=== PATIENT | male | born 1945 | race Caucasian/White ===

== ENCOUNTER 2016-07-02 15:58 | Observation (INO) | payer BC, MEDICAID ==
--- NOTE | 2016-07-02 17:07 | Emergency Department Record ---
History of Present Illness - General Chief Complaint: Shortness of breath Stated Complaint: FLEM IN THROAT Time Seen by Provider: 07/02/16 16:58 Source: Patient, RN notes reviewed - History of Present Illness Initial Comments: cough and tight feeling in his throat, history of COPD, neck and shoulder pain and and unable to sleep last night because of neck and jaw pain - Related Data Home Medications Medication Instructions Recorded Confirmed Last Taken Albuterol Sulfate [Proair Hfa] 1 - 2 puff IH .EVERY 4-6 HOURS PRN 07/02/1607/0207/02/16 09:00 Amlodipine Besylate [Norvasc] 10 mg PO DAILY 07/02/16 07/02/16 07/02/16 09:00 Budesonide/Formoterol Fumarate 2 puff INH BID 07/02/16 07/02/16 07/02/16 09:00 [Symbicort 160-4.5 Mcg Inhaler] Cetirizine HCl 10 mg PO DAILY 07/02/16 07/02/16 07/02/16 09:00 Lisinopril 20 mg PO DAILY 07/02/16 07/02/16 07/02/16 09:00 Tiotropium [place] [Spiriva] 18 mcg IH DAILY 07/02/16 07/02/16 07/02/16 09:00 Previous Rx's Medication Instructions Recorded Azithromycin [Zithromax] 250 mg PO DAILY #6 tab 07/02/16 Allergies Allergy/AdvReac Type Severity Reaction Status Date / Time [id number] Reductase AdvReac Intermediate PT UNSURE Verified 07/02/16 16:50 Inhibitor OF REACTION Review of Systems Reviewed: No additional complaints except as noted below Constitutional: Reports: As per HPI. Denies: Chills, Fever, Malaise, Night sweats, Weakness, Weight change Eyes: Reports: As per HPI. Denies: Eye discharge, Eye pain, Photophobia, Vision change ENT: Reports: As per HPI, Congestion, Throat pain (tight feeling in his throat) . Denies: Dental pain, Ear pain, Epistaxis, Hearing loss Respiratory: Reports: As per HPI, Cough. Denies: Dyspnea, Hemoptysis, Stridor, Wheezes Cardiovascular: Reports: As per HPI. Denies: Arrhythmia, Chest pain, Dyspnea on exertion, Edema, Murmurs, Orthopnea, Palpitations, Paroxysmal nocturnal dyspnea, Rheumatic Fever, Syncope Endocrine: Reports: As per HPI. Denies: Fatigue, Heat or cold intolerance, Polydipsia, Polyuria Gastrointestinal: Reports: As per HPI. Denies: Abdominal pain, Constipation, Diarrhea, Hematemesis, Hematochezia, Melena, Nausea, Vomiting Genitourinary: Reports: As per HPI. Denies: Dysuria, Frequency, Hematuria, Incontinence, Retention, Testicular pain, Testicular mass, Urgency Musculoskeletal: Reports: As per HPI. Denies: Arthralgia, Back pain, Gout, Joint swelling, Myalgia, Neck pain Skin: Reports: As per HPI. Denies: Bruising, Change in color, Change in hair/ nails, Lesions, Pruritus, Rash Neurological: Reports: As per HPI. Denies: Abnormal gait, Confusion, Headache, Numbness, Paresthesias, Seizure, Tingling, Tremors, Vertigo, Weakness Psychiatric: Reports: As per HPI. Denies: Anxiety, Auditory hallucinations, Depression, Homicidal thoughts, Suicidal thoughts, Visual hallucinations Hematological/Lymphatic: Reports: As per HPI. Denies: Anemia, Blood Clots, Easy bleeding, Easy bruising, Swollen glands Physical Exam - General General Appearance: Alert, Oriented x3, Cooperative, No acute distress - Head Head exam: Normal inspection - Eye Eye exam: Normal appearance, PERRL Pupils: Normal accommodation - ENT ENT exam: Normal exam, Mucous membranes moist, Normal external ear exam, Normal orophraynx, TM's normal bilaterally Ear exam: Normal external inspection. negative: External canal tenderness Nasal Exam: Normal inspection. negative: Discharge, Sinus tenderness Mouth exam: Normal external inspection, Tongue normal Teeth exam: Normal inspection. negative: Dental caries Throat exam: Normal inspection. negative: Tonsillar erythema, Tonsillar exudate - Neck Neck exam: Normal inspection, Full ROM. negative: Tenderness - Respiratory Respiratory exam: Normal lung sounds bilaterally. negative: Respiratory distress - Cardiovascular Cardiovascular Exam: Regular rate, Normal rhythm, Normal heart sounds - GI/Abdominal GI/Abdominal exam: Soft, Normal bowel sounds. negative: Tenderness - Rectal Rectal exam: Deferred - exam: Deferred - Extremities Extremities exam: Normal inspection, Full ROM, Normal capillary refill. negative: Tenderness - Back Back exam: Reports: Normal inspection, Full ROM. Denies: Muscle spasm, Rash noted, Tenderness - Neurological Neurological exam: Alert, Normal gait, Oriented X3, Reflexes normal - Psychiatric Psychiatric exam: Normal affect, Normal mood - Skin Skin exam: Dry, Intact, Normal color, Warm Course Vital Signs 07/02/16 16:48 Temperature 97.9 F Pulse Rate [ 92 H Pulse Ox Probe] Respiratory 16 Rate Blood Pressure 166/90 [Left Arm] Pulse Ox 99 - Reevaluation(s) Reevaluation #1: doing better 07/02/16 18:01 Reevaluation #2: Patient able to swallow liquids and he ate food today 07/02/16 18:26 Reevaluation #3: feeling better after the breathing treatment 07/02/16 18:36 Medical Decision Making - Data Complexity MDM Data: Labs Ordered and/or Reviewed (soft tissue neck neg per radiology, chest no acute changes), X-Ray Ordered and/or Reviewed (chest chronic changes, soft tissue neck epiglottis enlarged) - Lab Data Result diagrams: 07/02/16 18:35 07/02/16 18:35 Disposition Clinical Impression: Bronchitis, COPD (chronic obstructive pulmonary disease) with acute bronchitis Disposition: Home, Self-Care Condition: (1) Good Instructions: Acute Bronchitis (ED), Chronic Obstructive Pulmonary Disease (ED) Additional Instructions: follow up with family in 3 days Prescriptions: Azithromycin [Zithromax] 250 mg PO DAILY #6 tab Forms: Patient Portal Access Time of Disposition: 18:51
[2016-07-02] MEDS ORDERED: IPRATROPIUM/ALBUTEROL (0.5MG/3MG) NEB INH ONE (17:23)
[2016-07-02] MEDS ORDERED: AZITHROMYCIN 500 MG TABLET PO ONE (18:38)
[2016-07-02 18:50] LABS: BASO % 0.4 % (0-6); EOS % 2.7 % (0-6); GRAN % 58.8 % (47-80); HEMATOCRIT 42.4 % (42.0-52.0); HEMOGLOBIN 14.6 gm/dl (14.0-18.0); LYMPH % 25.7 % (16-45); MEAN CORPUSCULAR HEMOGLOBIN 32.4 pg (27-33); MEAN CORPUSCULAR HGB CONC 34.4 g/dl (32-36); MEAN PLATELET VOLUME 8.6 fl (7.4-10.4); MONO % 12.4 % (0-9); PLATELET COUNT 247 K/uL (130-400); RED BLOOD COUNT 4.51 M/uL (4.40-5.70); RED CELL DISTRIBUTION WIDTH 12.7 % (11.5-14.5); WHITE BLOOD COUNT W/O DIFF 7.4 K/uL (4.2-12.2)
[2016-07-02 19:00] LABS: ANION GAP 7.8 (7-16); BLOOD UREA NITROGEN 10 mg/dL (9-20); CARBON DIOXIDE 25.2 mmol/L (22-30); CREATININE 0.7 mg/dL (0.66-1.25); EST GLOMERULAR FILTRATION RATE > 60 ml/min; GLUCOSE,RANDOM 109 mg/dL (70-110)
[2016-07-02 19:17] LABS: TROPONIN I < 0.012 ng/mL (0.00-0.034)
[2016-07-02 19:21] LABS: CKMB 4.6 ng/mL (0-4.3)
[2016-07-02] MEDS ORDERED: ASPIRIN 81 MG CHEWABLE TABLET PO ONE (19:37)
[2016-07-02 19:43] LABS: CREATINE PHOSPHOKINASE 150 U/L (55-170)
--- NOTE | 2016-07-02 19:45 | Emergency Department Record ---
History of Present Illness - General Chief Complaint: Shortness of breath Stated Complaint: FLEM IN THROAT Time Seen by Provider: 07/02/16 16:58 Source: Patient, RN notes reviewed - History of Present Illness Onset/Timin -: Days(s) - Related Data Home Medications Medication Instructions Recorded Confirmed Last Taken Albuterol Sulfate [Proair Hfa] 1 - 2 puff IH .EVERY 4-6 HOURS PRN 07/02/1607/0207/02/16 09:00 Amlodipine Besylate [Norvasc] 10 mg PO DAILY 07/02/16 07/02/16 07/02/16 09:00 Budesonide/Formoterol Fumarate 2 puff INH BID 07/02/16 07/02/16 07/02/16 09:00 [Symbicort 160-4.5 Mcg Inhaler] Cetirizine HCl 10 mg PO DAILY 07/02/16 07/02/16 07/02/16 09:00 Lisinopril 20 mg PO DAILY 07/02/16 07/02/16 07/02/16 09:00 Tiotropium [place] [Spiriva] 18 mcg IH DAILY 07/02/16 07/02/16 07/02/16 09:00 Previous Rx's Medication Instructions Recorded Azithromycin [Zithromax] 250 mg PO DAILY #6 tab 07/02/16 Allergies Allergy/AdvReac Type Severity Reaction Status Date / Time [id number] Reductase AdvReac Intermediate PT UNSURE Verified 07/02/16 16:50 Inhibitor OF REACTION Travel Screening - Travel/Exposure Within Last 30 Days Have you traveled within the last 30 days?: No - Travel/Exposure Within Last Year Have you traveled outside the [place] in the last year?: No - Additonal Travel Details Have you been exposed to anyone with a communicable illness?: No - Travel Symptoms Symptom Screening: None Review of Systems Constitutional: Reports: As per HPI. Denies: Chills, Fever, Malaise, Night sweats, Weakness, Weight change Eyes: Reports: As per HPI. Denies: Eye discharge, Eye pain, Photophobia, Vision change ENT: Reports: As per HPI, Congestion, Throat pain (tight feeling in his throat) . Denies: Dental pain, Ear pain, Epistaxis, Hearing loss Respiratory: Reports: As per HPI, Cough. Denies: Dyspnea, Hemoptysis, Stridor, Wheezes Cardiovascular: Reports: As per HPI. Denies: Arrhythmia, Chest pain, Dyspnea on exertion, Edema, Murmurs, Orthopnea, Palpitations, Paroxysmal nocturnal dyspnea, Rheumatic Fever, Syncope Endocrine: Reports: As per HPI. Denies: Fatigue, Heat or cold intolerance, Polydipsia, Polyuria Gastrointestinal: Reports: As per HPI. Denies: Abdominal pain, Constipation, Diarrhea, Hematemesis, Hematochezia, Melena, Nausea, Vomiting Genitourinary: Reports: As per HPI. Denies: Dysuria, Frequency, Hematuria, Incontinence, Retention, Testicular pain, Testicular mass, Urgency Musculoskeletal: Reports: As per HPI. Denies: Arthralgia, Back pain, Gout, Joint swelling, Myalgia, Neck pain Skin: Reports: As per HPI. Denies: Bruising, Change in color, Change in hair/ nails, Lesions, Pruritus, Rash Neurological: Reports: As per HPI. Denies: Abnormal gait, Confusion, Headache, Numbness, Paresthesias, Seizure, Tingling, Tremors, Vertigo, Weakness Psychiatric: Reports: As per HPI. Denies: Anxiety, Auditory hallucinations, Depression, Homicidal thoughts, Suicidal thoughts, Visual hallucinations Hematological/Lymphatic: Reports: As per HPI. Denies: Anemia, Blood Clots, Easy bleeding, Easy bruising, Swollen glands Past Medical History - SOCIAL HISTORY Smoking Status: Former smoker Alcohol Use: Heavy Alcohol Use Comment: 4 or 5 beers per day Drug Use: None - RESPIRATORY Hx Respiratory Disorders: Yes Hx Asthma: Yes Hx COPD: Yes - CARDIOVASCULAR Hx Cardio Disorders: No - NEURO Hx Neuro Disorders: No - GI Hx GI Disorders: No - Hx Genitourinary Disorders: No - ENDOCRINE Hx Endocrine Disorders: No - MUSCULOSKELETAL Hx Musculoskeletal Disorders: Yes Comment:: left arm doesnt straighten out, right leg injury - PSYCH Hx Psych Problems: No - HEMATOLOGY/ONCOLOGY Hx Hematology/Oncology Disorders: No Family Medical History Any Significant Family History?: No Course Vital Signs 07/02/16 07/02/16 07/02/16 16:48 17:52 18:55 Temperature 97.9 F Pulse Rate 86 Pulse Rate [ 92 H 93 H Pulse Ox Probe] Respiratory 16 16 18 Rate Blood Pressure 166/90 144/101 [Left Arm] Pulse Ox 99 96 98 - Reevaluation(s) Reevaluation #1: 07/02/16 19:53 Ckmb came back slightly high and his troponin I was neg. Concerned about nonSTelevated ND so will abmit for serial cardiac enzymes and a repeat EKG. Talked to Agnieszka and will admit to Dr. Abarca. Medical Decision Making - Lab Data Result diagrams: 07/02/16 18:35 07/02/16 18:35 Lab Results 07/02/16 07/02/16 07/02/16 Range/Units 18:35 18:35 18:35 WBC 7.4 (4.2-12.2) K/uL RBC 4.51 (4.40-5.70) M/uL Hgb 14.6 (14.0-18.0) gm/dl Hct 42.4 (42.0-52.0) % MCV 94.0 (81-97) fl MCH 32.4 (27-33) pg MCHC 34.4 (32-36) g/dl RDW 12.7 (11.5-14.5) % Plt Count 247 (130-400) K/uL MPV 8.6 (7.4-10.4) fl Gran % 58.8 (47-80) % Lymphocytes % 25.7 (16-45) % Monocytes % 12.4 H (0-9) % Eosinophils % 2.7 (0-6) % Basophils % 0.4 (0-6) % APTT 26.60 (24.5-39.1) SECONDS Sodium 126 L (136-145) mmol/L Potassium 3.9 (3.5-5.1) mmol/L Chloride 93 L (98-107) mmol/L Carbon Dioxide 25.2 (22-30) mmol/L Anion Gap 7.8 (7-16) BUN 10 (9-20) mg/dL Creatinine 0.7 (0.66-1.25) mg/dL Estimated GFR > 60 ml/min Random Glucose 109 (70-110) mg/dL Calcium 9.6 (8.5-10.1) mg/dL CK-MB (CK-2) 4.6 H (0-4.3) ng/mL Troponin I < 0.012 (0.00-0.034) ng/mL Disposition Clinical Impression: Bronchitis, Chest pain Decision to Admit: Admit from ER Condition: (1) Good Instructions: Acute Bronchitis (ED), Chronic Obstructive Pulmonary Disease (ED) Additional Instructions: follow up with family in 3 days Prescriptions: Azithromycin [Zithromax] 250 mg PO DAILY #6 tab Forms: Patient Portal Access Time of Disposition: 20:01
[2016-07-02] MEDS ORDERED: ACETAMINOPHEN 500 MG TABLET PO PRN (20:02)
[2016-07-02] MEDS ORDERED: AL HYDROX/MAG HYDROX 30ML UD PO PRN (20:02)
[2016-07-02] MEDS ORDERED: NITROGLYCERIN 0.4MG SL TABLET #25 BTL SL PRN (20:02)
[2016-07-02] MEDS ORDERED: ALBUTEROL HFA 8 GM INHALER INH PRN ×2 (20:11→23:07)
[2016-07-02] MEDS ORDERED: FLUTICASONE/SALMETEROL 250/50 DISKUS INH SCH (23:15)
[2016-07-03] MEDS ORDERED: [UNRECOGNIZED DRUG - OTHER] SL PRN ×2 (01:49→02:39)
[2016-07-03 06:58] LABS: CKMB 4.6 ng/mL (0-4.3)
--- NOTE | 2016-07-03 07:54 | History & Physical ---
History of Present Illness - Date of Service Date of Service for History & Physical: 07/03/16 - History of Present Illness Admitting Diagnosis: chest pain. acute bronchitis. copd History of Present Illness: 71 yo male admitted for CP rule out. PMHx of former smoker (quit in 2001), COPD , HTN, alcohol abuse (4, 12 ounce beers nightly), proteinuria, and hyponatremia. patient presented to our ED for increased phlegm in his throat and swollen glands. Onset 2-3 days prior to presentation. Aggravated by nothing, alleviated by breathing treatment in the ER. per patient, associated symptoms included tightness in his throat. upon presentation, patient aferile. VSS, slightly tachycardic at 92. normal WBC. sodium 126, chloride 93, CK-MB 4.6 (cut off 4.3), negative troponin. EKG : NSR, no acute changes. CXR: NAP, COPD. soft tissue xray: NAP. Patient given ASA, duo neb treatment and dose of PO Azithromycin. Placed on Tele and admitted for further cardiac work up. 07/03/16: patient sitting up in bed comfortably. He states, " i'm not staying past 1pm." He is feeling much better. states the phlegm in his throat has resolved. He denies CP, SOB, fever, chills, n/v, abdominal pain, change in bowel habits, dizziness, diaphoresis, confusion or weakness. Patient denies CP , jaw or neck pain. Denies h/o CT, CVA, or DVT/PE. States he follows with a monument installer q 3 months re proteinuria. Per patient, he's been told to follow a low sodium diet, however his sodium became too low. Sodium remains 126 this morning. PCP: Vinayak Hough M.D. Travel Screening - Travel/Exposure Within Last 30 Days Have you traveled within the last 30 days?: No - Travel/Exposure Within Last Year Have you traveled outside the [place] in the last year?: No - Additonal Travel Details Have you been exposed to anyone with a communicable illness?: No - Travel Symptoms Symptom Screening: None Review of Systems Constitutional: Reports: As per HPI. Denies: Chills, Fever, Malaise, Night sweats, Weakness, Weight change Eyes: Reports: As per HPI. Denies: Eye discharge, Eye pain, Photophobia, Vision change ENT: Reports: As per HPI, Congestion. Denies: Dental pain, Ear pain, Epistaxis , Hearing loss, Throat pain Respiratory: Reports: As per HPI, Cough. Denies: Dyspnea, Hemoptysis, Stridor, Wheezes Cardiovascular: Reports: As per HPI. Denies: Arrhythmia, Chest pain, Dyspnea on exertion, Edema, Murmurs, Orthopnea, Palpitations, Paroxysmal nocturnal dyspnea, Rheumatic Fever, Syncope Endocrine: Reports: As per HPI. Denies: Fatigue, Heat or cold intolerance, Polydipsia, Polyuria Gastrointestinal: Reports: As per HPI. Denies: Abdominal pain, Constipation, Diarrhea, Hematemesis, Hematochezia, Melena, Nausea, Vomiting Genitourinary: Reports: As per HPI. Denies: Dysuria, Frequency, Hematuria, Incontinence, Retention, Testicular pain, Testicular mass, Urgency Musculoskeletal: Reports: As per HPI. Denies: Arthralgia, Back pain, Gout, Joint swelling, Myalgia, Neck pain Skin: Reports: As per HPI. Denies: Bruising, Change in color, Change in hair/ nails, Lesions, Pruritus, Rash Neurological: Reports: As per HPI. Denies: Abnormal gait, Confusion, Headache, Numbness, Paresthesias, Seizure, Tingling, Tremors, Vertigo, Weakness Psychiatric: Reports: As per HPI. Denies: Anxiety, Auditory hallucinations, Depression, Homicidal thoughts, Suicidal thoughts, Visual hallucinations Hematological/Lymphatic: Reports: As per HPI. Denies: Anemia, Blood Clots, Easy bleeding, Easy bruising, Swollen glands Past Medical History - SOCIAL HISTORY Smoking Status: Former smoker Alcohol Use: Heavy Alcohol Use Comment: 4/5 daily Drug Use: None - RESPIRATORY Hx Respiratory Disorders: Yes Hx Asthma: Yes Hx COPD: Yes - CARDIOVASCULAR Hx Cardio Disorders: No Hx Hypertension: Yes - NEURO Hx Neuro Disorders: No - GI Hx GI Disorders: No - Hx Genitourinary Disorders: No - ENDOCRINE Hx Endocrine Disorders: No - MUSCULOSKELETAL Hx Musculoskeletal Disorders: Yes Comment:: left arm doesnt straighten out, right leg injury - PSYCH Hx Psych Problems: No - HEMATOLOGY/ONCOLOGY Hx Hematology/Oncology Disorders: No Family Medical History Any Significant Family History?: Yes Hx Resp Disorders: Father *Resp Comment: COPD H&P Meds/Allergies - Allergies Allergies: Allergies Allergy/AdvReac Type Severity Reaction Status Date / Time Bjumbro-Ans-Qae Reductase AdvReac Intermediate PT UNSURE Verified 07/02/16 16:50 Inhibitor OF REACTION - Home Medications Home Medications Medication Instructions Recorded Confirmed Last Taken Albuterol Sulfate [Proair Hfa] 1 - 2 puff IH .EVERY 4-6 HOURS PRN 07/02/1607/0207/02/16 09:00 Amlodipine Besylate [Norvasc] 10 mg PO DAILY 07/02/16 07/02/16 07/02/16 09:00 Budesonide/Formoterol Fumarate 2 puff INH BID 07/02/16 07/02/16 07/02/16 09:00 [Symbicort 160-4.5 Mcg Inhaler] Cetirizine HCl 10 mg PO DAILY 07/02/16 07/02/16 07/02/16 09:00 Lisinopril 20 mg PO DAILY 07/02/16 07/02/16 07/02/16 09:00 Tiotropium [place] [Spiriva] 18 mcg IH DAILY 07/02/16 07/02/16 07/02/16 09:00 Previous Rx's Medication Instructions Recorded Azithromycin [Zithromax] 250 mg PO DAILY #6 tab 07/02/16 - Active Medications Active Medications: Current Medications Acetaminophen (Tylenol 500mg Tab) 500 mg PO Q6H PRN PRN Reason: PAIN/TEMP Al Hydroxide/Mg Hydroxide (Maalox) 30 ml PO Q4H PRN PRN Reason: GI UPSET Albuterol Sulfate (Ventolin Hfa) 1 puff INH Q4H PRN PRN Reason: DIFFICULTY IN BREATHING Albuterol Sulfate (Ventolin Hfa) 2 puff INH Q4H PRN PRN Reason: DIFFICULTY IN BREATHING Amlodipine Besylate (Norvasc) 10 mg PO DAILY [facility] Aspirin (Ecotrin (Ec)) 81 mg PO DAILY [facility] Azithromycin (Zithromax) 500 mg PO Q24H [facility] Enoxaparin Sodium (Lovenox) 40 mg SQ DAILY [facility] Lisinopril (Zestril) 20 mg PO DAILY [facility] Loratadine (Claritin) 10 mg PO DAILY [facility] Nitroglycerin (Nitrostat 0.4mg) 0.4 mg SL Q5MIN PRN PRN Reason: CHEST PAIN [facility] 2 each SL Q4HR PRN PRN Reason: Leg cramps Patient Own Med: [facility] Leg Cramp Medication 3 each SL Q4HR PRN PRN Reason: Leg cramps Fluticasone/Salmeterol (Advair 250/50) 1 puff INH Q12H [facility] Last Admin: 07/03/16 00:20 Dose: Not Given Tiotropium [place] (Spiriva) 1 cap INH DAILY [facility] Physical Exam - Vital Signs Vital Signs: Vital Signs - Last 24 Hrs Temp Pulse Resp BP Pulse Ox 07/03/16 06:00 97.5 F L 85 16 105/71 100 07/03/16 02:02 97.7 F 83 16 119/72 100 07/02/16 20:36 97.8 F 92 H 17 145/90 98 - General General Appearance: Alert, Oriented x3, Cooperative, No acute distress - Head Head exam: Normal inspection - Eye Eye exam: Normal appearance, PERRL Pupils: Normal accommodation - ENT ENT exam: Normal exam, Mucous membranes moist, Normal external ear exam, Normal orophraynx, TM's normal bilaterally Ear exam: Normal external inspection. negative: External canal tenderness Nasal Exam: Normal inspection. negative: Discharge, Sinus tenderness Mouth exam: Normal external inspection, Tongue normal Teeth exam: Normal inspection. negative: Dental caries Throat exam: Normal inspection. negative: Tonsillar erythema, Tonsillar exudate - Neck Neck exam: Normal inspection, Full ROM. negative: Tenderness - Respiratory Respiratory exam: Normal lung sounds bilaterally. negative: Respiratory distress - Cardiovascular Cardiovascular Exam: Regular rate, Normal rhythm, Normal heart sounds - GI/Abdominal GI/Abdominal exam: Soft, Normal bowel sounds. negative: Tenderness - Rectal Rectal exam: Deferred - exam: Deferred - Extremities Extremities exam: Normal inspection, Full ROM, Normal capillary refill. negative: Tenderness - Back Back exam: Reports: Normal inspection, Full ROM. Denies: Muscle spasm, Rash noted, Tenderness - Neurological Neurological exam: Alert, Normal gait, Oriented X3, Reflexes normal - Psychiatric Psychiatric exam: Normal affect, Normal mood - Skin Skin exam: Dry, Intact, Normal color, Warm Results - Labs Result Diagrams: 07/02/16 18:35 07/03/16 05:35 Labs Last 24 Hours: Laboratory Results - last 24 hr 07/03/16 07/03/16 05:55 05:55 CK-MB (CK-2) 4.6 H Troponin I < 0.012 VTE H&P Assessment - Risk for VTE Risk for VTE: Yes Risk Level: Low (age) Risk Assessment Date: 07/03/16 Risk Assessment Time: 10:00 VTE Orders Placed or Will Be Placed: No VTE Reason for No Prophylaxis: Not Indicated (patient ambulating the room, no other risk factors aside from age) Plan - Detailed Diagnosis and Plan (1) Bronchitis Current Visit: Yes Status: Acute Base Code: J40 - BRONCHITIS, NOT SPECIFIED ACUTE OR CHRONIC Comment: 07/03/16: 71 yo male with h/o COPD presented to the ED with increased amounts of phlegm and throat tightness. normal WBC. CXR : COPD, NAP. Soft tissue x ray: NAP. O2 98% on RA. EKG: NSR, no acute changes x 2. troponin negative x 3. Symptoms improved following duo neb treatment and PO Azithromycin. Lungs CTAB on exam. - Continue home pulmonary medications- albuterol, Spiriva and Symbicort - continue PO Azithromycin - duo neb treatment Q4 prn - Will avoid systemic steroids as pulmonary exam is unremarkable and pulse ox stable. (2) COPD (chronic obstructive pulmonary disease) Current Visit: Yes Status: Acute Base Code: J44.9 - CHRONIC OBSTRUCTIVE PULMONARY DISEASE, UNSPECIFIED Comment: 07/03/16: continue home medications: albuterol, spiriva, symbicort (3) Hyponatremia Current Visit: Yes Status: Acute Base Code: E87.1 - HYPO-OSMOLALITY AND HYPONATREMIA Comment: 07/03/16: patient states this has been chronic since following a low sodium diet and increasing fluid intake. Educated patient on proper sodium intake. - increase sodium intake and decrease water consumption. - pt denies dizziness, confusion, weakness (4) DVT prophylaxis Current Visit: Yes Status: Acute Base Code: [id number] - (5) Full code status Current Visit: Yes Status: Acute Base Code: Z78.9 - OTHER SPECIFIED HEALTH STATUS
[2016-07-03 07:59] LABS: ANION GAP 9.7 (7-16); BLOOD UREA NITROGEN 10 mg/dL (9-20); CARBON DIOXIDE 20.3 mmol/L (22-30); CREATININE 0.7 mg/dL (0.66-1.25); EST GLOMERULAR FILTRATION RATE > 60 ml/min; GLUCOSE,RANDOM 108 mg/dL (70-110)
[2016-07-03] MEDS: PATIENT OWN MED: IH SCH ×2 (08:00→10:54)
[2016-07-03] MEDS ORDERED: PATIENT OWN MED: INH PRN (09:58)
[2016-07-03] MEDS ORDERED: ENOXAPARIN 40 MG/0.4 ML SYR SQ SCH (10:00)
[2016-07-03] MEDS ORDERED: TIOTROPIUM BROMIDE 5 CAPSULES INH SCH (10:00)
[2016-07-03] MEDS ORDERED: ASPIRIN 81 MG TABEC PO SCH (10:00)
[2016-07-03] MEDS ORDERED: LISINOPRIL 20 MG TABLET PO SCH (10:00)
[2016-07-03] MEDS ORDERED: AMLODIPINE BESYLATE 5MG TAB PO SCH (10:00)
[2016-07-03] MEDS ORDERED: PATIENT OWN MED: IH SCH (10:00)
[2016-07-03] MEDS ORDERED: LORATADINE 10 MG TABLET PO SCH (10:00)
[2016-07-03] MEDS ORDERED: PATIENT OWN MED: MC SCH ×2 (10:30)
--- NOTE | 2016-07-03 10:49 | Discharge Summary ---
Providers Discharge Summary Date: 07/03/16 Date of admission: 07/02/16 20:25 Expected Date of Discharge: 07/03/16 Attending physician: KRYSTA HARRY Primary care physician: VINAYAK AHN M.D. Physical Exam - Vital Signs Vital Signs: Vital Signs - Last 24 Hrs Temp Pulse Resp BP Pulse Ox 07/03/16 09:31 97.5 F L 87 18 118/70 98 07/03/16 06:00 97.5 F L 85 16 105/71 100 07/03/16 02:02 97.7 F 83 16 119/72 100 07/02/16 20:36 97.8 F 92 H 17 145/90 98 - General General Appearance: Alert, Oriented x3, Cooperative, No acute distress - Head Head exam: Normal inspection - Eye Eye exam: Normal appearance, PERRL Pupils: Normal accommodation - ENT ENT exam: Normal exam, Mucous membranes moist, Normal external ear exam, Normal orophraynx, TM's normal bilaterally Ear exam: Normal external inspection. negative: External canal tenderness Nasal Exam: Normal inspection. negative: Discharge, Sinus tenderness Mouth exam: Normal external inspection, Tongue normal Teeth exam: Normal inspection. negative: Dental caries Throat exam: Normal inspection. negative: Tonsillar erythema, Tonsillar exudate - Neck Neck exam: Normal inspection, Full ROM. negative: Tenderness - Respiratory Respiratory exam: Normal lung sounds bilaterally. negative: Respiratory distress - Cardiovascular Cardiovascular Exam: Regular rate, Normal rhythm, Normal heart sounds - GI/Abdominal GI/Abdominal exam: Soft, Normal bowel sounds. negative: Tenderness - Rectal Rectal exam: Deferred - exam: Deferred - Extremities Extremities exam: Normal inspection, Full ROM, Normal capillary refill. negative: Tenderness - Back Back exam: Reports: Normal inspection, Full ROM. Denies: Muscle spasm, Rash noted, Tenderness - Neurological Neurological exam: Alert, Normal gait, Oriented X3, Reflexes normal - Psychiatric Psychiatric exam: Normal affect, Normal mood - Skin Skin exam: Dry, Intact, Normal color, Warm Hospitalization - Hospitalization Admission Diagnosis: chest pain. acute bronchitis. copd - Problem List/Discharge Diagnosis (1) Bronchitis Status: Acute Base Code: J40 - BRONCHITIS, NOT SPECIFIED ACUTE OR CHRONIC Comment: 07/03/16: 71 yo male with h/o COPD presented to the ED with increased amounts of phlegm and throat tightness. normal WBC. CXR: COPD, NAP. Soft tissue x ray: NAP. O2 98% on RA. EKG: NSR, no acute changes x 2. troponin negative x 3. Symptoms improved following duo neb treatment and PO Azithromycin. Lungs CTAB on exam. - Continue home pulmonary medications- albuterol, Spiriva and Symbicort - continue PO Azithromycin - Will avoid systemic steroids as pulmonary exam is unremarkable and pulse ox stable. - pt will contact primary provider tomorrow to schedule a hospital follow up visit. - he agrees to return sooner re any new or worsening symptoms (2) COPD (chronic obstructive pulmonary disease) Status: Acute Base Code: J44.9 - CHRONIC OBSTRUCTIVE PULMONARY DISEASE, UNSPECIFIED Comment: 07/03/16: continue home medications: albuterol, spiriva, symbicort (3) Hyponatremia Status: Acute Base Code: E87.1 - HYPO-OSMOLALITY AND HYPONATREMIA Comment: : chronic per patient. denies dizziness, lightheadedness, weakness, or confusion. A&Ox3. provided education on hyponatremia. patient agree's to follow up with his primary provider in the next 2-3 days to f/up from hospital stay and return sooner re any new or worsening symptoms. he will get sodium rechecked prior to his follow up visit. (4) Full code status Status: Acute Base Code: Z78.9 - OTHER SPECIFIED HEALTH STATUS Comment: 07/03 - pt remained full code during hospital stay - Hospitalization Course Disposition: Home, Self-Care Hospital Course: 71 yo male admitted for CP rule out. PMHx of former smoker (quit in 2001), COPD , HTN, alcohol abuse (4, 12 ounce beers nightly), proteinuria, and hyponatremia. patient presented to our ED for increased phlegm in his throat and swollen glands. Onset 2-3 days prior to presentation. Aggravated by nothing, alleviated by breathing treatment in the ER. per patient, associated symptoms included tightness in his throat. upon presentation, patient aferile. VSS, slightly tachycardic at 92. normal WBC. sodium 126, chloride 93, CK-MB 4.6 (cut off 4.3), negative troponin. EKG : NSR, no acute changes. CXR: NAP, COPD. soft tissue xray: NAP. Patient given ASA, duo neb treatment and dose of PO Azithromycin. Placed on Tele and admitted for further cardiac work up. 07/03/16: patient sitting up in bed comfortably. He states, " i'm not staying past 1pm." He is feeling much better. states the phlegm in his throat has resolved. He denies CP, SOB, fever, chills, n/v, abdominal pain, change in bowel habits, dizziness, diaphoresis, confusion or weakness. Patient denies CP , jaw or neck pain. Denies h/o OK, CVA, or DVT/PE. 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 Per patient, he's been told to follow a low sodium diet, however his sodium became too low. Sodium remains 126 this morning. PCP: Vinayak Hough M.D. Abnormal Labs: Abnormal Lab Results 07/03/16 07/03/16 Range/Units 05:35 05:55 Sodium 126 L (136-145) mmol/L Chloride 96 L (98-107) mmol/L Carbon Dioxide 20.3 L (22-30) mmol/L CK-MB (CK-2) 4.6 H (0-4.3) ng/mL Condition at Discharge: (1) Good Discharge Medications - Discharge Medications Prescriptions: Azithromycin [Zithromax] 250 mg PO DAILY #6 tab Home Medications: Ambulatory Orders Albuterol Sulfate [Proair Hfa] 1 - 2 puff IH .EVERY 4-6 HOURS PRN 07/02/16 [ Last Taken 07/02/16 09:00] Amlodipine Besylate [Norvasc] 10 mg PO DAILY 07/02/16 [Last Taken 07/02/16 09:00 ] Azithromycin [Zithromax] 250 mg PO DAILY #6 tab 07/02/16 [Last Taken Unknown] Budesonide/Formoterol Fumarate [Symbicort 160-4.5 Mcg Inhaler] 2 puff INH BID [Last Taken 07/02/16 09:00] Cetirizine HCl 10 mg PO DAILY 07/02/16 [Last Taken 07/02/16 09:00] Lisinopril 20 mg PO DAILY 07/02/16 [Last Taken 07/02/16 09:00] Tiotropium [place] [Spiriva] 18 mcg IH DAILY 07/02/16 [Last Taken 07/02/16 09:00 ] Discharge Plan - Discharge Instructions Activity at Discharge: Increase Activity as Tolerated Diet at Discharge: Regular Diet Instructions: Azithromycin (By mouth), Hyponatremia (GEN), Acute Bronchitis (ED ), Chronic Obstructive Pulmonary Disease (ED) Additional Instructions: 2 Activity: Increase Activity as Tolerated 2 Diet: Regular Diet 2 Consults: [] 2 Follow Up: follow up with family in 3 days 2 Dressing/Wound Care: (Type) (Change) 2 Additional: [] 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
[2016-07-03] MEDS ORDERED: AZITHROMYCIN 500 MG TABLET PO SCH (18:00)
--- NOTE | 2016-07-04 07:53 | RADIOLOGY REPORT ---
EXAM: CHEST, TWO VIEWS HISTORY: COUGH AND DIFFICULTY SWALLOWING. TECHNIQUE: PA and lateral upright views of the chest were obtained. Comparison: 08/23/12. FINDINGS: The heart is normal in size. There is mild calcification of the aorta. Calcified mediastinal and hilar lymph nodes are present. The mediastinum and pulmonary vasculature are otherwise normal. There are numerous scattered calcified granulomas throughout both lungs which appear unchanged from the prior study. There are no acute infiltrates or effusions. The lungs are mildly hyperinflated consistent with underlying COPD. Degenerative changes are present within the shoulders and spine. There are no acute osseous abnormalities. IMPRESSION: 1. STABLE CHEST WITH NO ACUTE PROCESS IDENTIFIED. 2. OLD GRANULOMATOUS DISEASE. 3. MILD HYPERINFLATION. [facility]BER: [id number] [facility]
--- NOTE | 2016-07-04 07:56 | RADIOLOGY REPORT ---
EXAM: SOFT TISSUE NECK HISTORY: COUGH AND DIFFICULTY SWALLOWING. PHLEGM IN THROAT. TECHNIQUE: AP and lateral views of the neck soft tissues were obtained. Comparison: None. FINDINGS: The cervical airway appears normal. There is no visible foreign body or airway narrowing. The epiglottis and aryepiglottic folds are normal. The retropharyngeal soft tissues are unremarkable. Multilevel degenerative changes are present within the spine. IMPRESSION: NO ACUTE NECK PATHOLOGY. JOB NUMBER: [id number] [facility]
== END 2016-07-03 13:40 | disposition home or self-care (01) ==
LOC: ER 15:58 → MEDSURG 20:25
PROVIDERS: ADMIT Family Medicine; ATTEND Family Medicine
DX: J44.0 Chronic obstructive pulmonary disease with (acute) lower respiratory infection (principal); J20.9 Acute bronchitis, unspecified; J44.1 Chronic obstructive pulmonary disease with (acute) exacerbation; I10 Essential (primary) hypertension; F10.10 Alcohol abuse, uncomplicated; R80.9 Proteinuria, unspecified; E87.1 Hypo-osmolality and hyponatremia; Z78.9 Other specified health status
CPT/HCPCS: 93041; 99285 ×2; 94760; 82550 ×2; 85025; 85730; 82553 ×2; 84484 ×2; 80048 ×2; 71020; 70360; 94640; 93005 ×2; 93010; G0378 ×2; 99220

== ENCOUNTER 2016-08-28 14:41 | Emergency (ER) | payer BC ==
[2016-08-28] MEDS ORDERED: PREDNISONE 20 MG TAB PO ONE (15:34)
[2016-08-28] MEDS ORDERED: IPRATROPIUM/ALBUTEROL (0.5MG/3MG) NEB INH ONE (15:34)
--- NOTE | 2016-08-28 15:37 | Emergency Department Record ---
History of Present Illness - General Chief Complaint: Difficulty Breathing Stated Complaint: ANA LUISA Time Seen by Provider: 08/28/16 15:31 Source: Patient Mode of Arrival: Ambulatory Limitations: No limitations - History of Present Illness Initial Comments: The patient is here due to a 2 day hx of mild SOB and ANA LUISA. He has a hx of Asthma and COPD and feels like he is having a flare up. He denies any CP, cough , fever, or back pain. He has been using his home Nebulizer for one day with no significant resolution. MD Complaint: Shortness of breath Onset/Timin -: Days(s) Severity: Moderate Severity scale (1-10): 1 Quality: Aching Consistency: Constant Improves With: Bronchodilators Worsens With: Coughing, Exertion Known History Of: Asthma, COPD Treatments Prior to Arrival: Bronchodilator - Related Data Home Oxygen Therapy: No Home Medications Medication Instructions Recorded Confirmed Last Taken Albuterol Sulfate [Proair Hfa] 1 - 2 puff IH .EVERY 4-6 HOURS PRN 07/02/1608/28 1 Day Ago ~08/27/16 Amlodipine Besylate [Norvasc] 10 mg PO DAILY 07/02/16 08/28/16 1 Day Ago ~08/27/16 Budesonide/Formoterol Fumarate 2 puff INH BID 07/02/16 08/28/16 1 Day Ago [Symbicort 160-4.5 Mcg Inhaler] ~08/27/16 Cetirizine HCl 10 mg PO DAILY 07/02/16 08/28/16 1 Day Ago ~08/27/16 Lisinopril 20 mg PO DAILY 07/02/16 08/28/16 1 Day Ago ~08/27/16 Tiotropium [place] [Spiriva] 18 mcg IH DAILY 07/02/16 08/28/16 1 Day Ago ~08/27/16 Albuterol Sulfate 0.083% [Neb] 3 ml NEB .EVERY 4-6 HOURS PRN 08/28/16 08/28/16 1 Day Ago ~08/27/16 Previous Rx's Medication Instructions Recorded Prednisone [Prednisone 20Mg] 40 mg PO DAILY #8 tab 08/28/16 Allergies Allergy/AdvReac Type Severity Reaction Status Date / Time hydrocodone [From [place]] Allergy VOMITING Verified 08/28/16 14:53 [id number]-Mwl-[id number] Reductase AdvReac Intermediate PT UNSURE Verified 08/28/16 14:53 Inhibitor OF REACTION Travel Screening - Travel/Exposure Within Last 30 Days Have you traveled within the last 30 days?: No - Travel/Exposure Within Last Year Have you traveled outside the [place] in the last year?: No - Additonal Travel Details Have you been exposed to anyone with a communicable illness?: No - Travel Symptoms Symptom Screening: None Review of Systems Constitutional: Denies: Chills, Fever Eyes: Denies: Eye discharge ENT: Denies: Congestion Respiratory: Denies: Cough, Dyspnea Past Medical History - SOCIAL HISTORY Smoking Status: Former smoker Alcohol Use: None Drug Use: None - RESPIRATORY Hx Respiratory Disorders: Yes Hx Asthma: Yes Hx Bronchitis: Yes Hx COPD: Yes - CARDIOVASCULAR Hx Cardio Disorders: No Hx Hypertension: Yes - NEURO Hx Neuro Disorders: No - GI Hx GI Disorders: No - Hx Genitourinary Disorders: No - ENDOCRINE Hx Endocrine Disorders: No - MUSCULOSKELETAL Hx Musculoskeletal Disorders: Yes Comment:: left arm doesnt straighten out, right leg injury - PSYCH Hx Psych Problems: No - HEMATOLOGY/ONCOLOGY Hx Hematology/Oncology Disorders: No Family Medical History Any Significant Family History?: Yes Hx Resp Disorders: Father *Resp Comment: COPD Physical Exam - General General Appearance: Alert, Oriented x3, Cooperative, No acute distress - Head Head exam: Atraumatic, Normocephalic, Normal inspection - Eye Eye exam: Normal appearance, PERRL - ENT Throat exam: Normal inspection. negative: Tonsillar erythema, Tonsillar exudate - Neck Neck exam: Normal inspection, Full ROM. negative: Lymphadenopathy, Meningismus , Tenderness - Respiratory Respiratory exam: Chest wall tenderness, Decreased breath sounds (There is decreased bs mildly bilaterally.), Wheezes (There are a few wheezes at the bases.). negative: Normal lung sounds bilaterally, Accessory muscle use, Respiratory distress (The patient is in no respiratory distress and is speaking in full sentences.) - Cardiovascular Cardiovascular Exam: Regular rate, Normal rhythm, Normal heart sounds - GI/Abdominal GI/Abdominal exam: Soft, Normal bowel sounds. negative: Tenderness - Extremities Extremities exam: Normal inspection, Full ROM, Normal capillary refill. negative: Tenderness - Neurological Neurological exam: Alert Course Vital Signs 08/28/16 14:46 Temperature 98.2 F Pulse Rate 103 H Respiratory 20 Rate Blood Pressure 177/81 Pulse Ox 95 - Reevaluation(s) Reevaluation #1: The patient is doing much better at this time. He feels his breathing is back to normal and he is ready for home. On exam his lungs are much more clear with much better aeration. 08/28/16 16:23 08/28/16 16:23 Medical Decision Making - Data Complexity MDM Data: X-Ray Ordered and/or Reviewed - Radiology Data Radiology results: Report reviewed (CXR: No acute changes.) Disposition Disposition: Discharge Clinical Impression: COPD (chronic obstructive pulmonary disease) Qualifiers: COPD type: unspecified COPD Qualified Code(s): J44.9 - Chronic obstructive pulmonary disease, unspecified Disposition: Home, Self-Care Condition: (1) Good Instructions: Dyspnea (ED) Additional Instructions: Please use your nebulizer 4 times a day for 3 days and continue the Prednisone tomorrow. Please see your PCP if not better in 2 days and return to the ER if worse. Prescriptions: Prednisone [Prednisone 20Mg] 40 mg PO DAILY #8 tab Forms: Patient Portal Access Time of Disposition: 16:25 Quality - Quality Measures Quality Measures: N/A - Blood Pressure Screening View Details: Yes Blood Pressure Classification: Pre-Hypertensive BP Reading Systolic Measurement: 177 Diastolic Measurement: 81 Screening for High Blood Pressure: < Pre-Hypertensive BP, F/U Documented > [ G8950] Pre-Hypertensive Follow-up Interventions: Follow-up with rescreen every year.
--- NOTE | 2016-08-29 15:04 | RADIOLOGY REPORT ---
EXAM: CHEST HISTORY: DIFFICULTY BREATHING. TECHNIQUE: Two views of the chest were obtained. Comparison: 07/02/16. FINDINGS: The heart is not enlarged and there is no mediastinal mass. No acute infiltrate or vascular congestion. Numerous calcified lung nodulars are present unchanged likely due to old granulomatous disease. The lungs remain mildly hyperinflated, unchanged. IMPRESSION: 1. STABLE CHEST WITH NO ACUTE CARDIAC OR PULMONARY ABNORMALITY. 2. OLD GRANULOMATOUS DISEASE, UNCHANGED. 3. STABLE MILD HYPERINFLATION. [facility]BER: [id number] [facility]
== END 2016-08-28 16:35 | disposition home or self-care (01) ==
LOC: ER 14:41
DX: J44.9 Chronic obstructive pulmonary disease, unspecified (principal); R06.00 Dyspnea, unspecified; I10 Essential (primary) hypertension; Z87.891 Personal history of nicotine dependence
CPT/HCPCS: 99283; 99284; 71020; 94640; J7512

== ENCOUNTER 2016-09-11 13:30 | Observation (INO) | payer BC ==
[2016-09-11] MEDS ORDERED: METHYLPREDNISOLONE PF 125MG/VIAL IVP ONE (13:36)
[2016-09-11] MEDS ORDERED: IPRATROPIUM/ALBUTEROL (0.5MG/3MG) NEB INH ONE (13:36)
--- NOTE | 2016-09-11 13:43 | Emergency Department Record ---
History of Present Illness - General Chief Complaint: Difficulty Breathing Stated Complaint: DIFFICULTY BREATHING Time Seen by Provider: 09/11/16 13:34 Source: Patient, Family Mode of Arrival: Ambulatory Limitations: No limitations - History of Present Illness Initial Comments: 71 yo male presents with shortness of breath since last night. He has a history of COPD. He is a former smoker. He was treated in the ED for COPD on . He was doing well until yesterday. No fevers. No chest pain. No significant sputum changes. He is not on home oxygen. No other current symptoms. No nausea, vomiting, diarrhea. No edema. MD Complaint: Cough, Shortness of breath (COPD) -: Days(s) (2) Severity: Moderate Consistency: Constant Improves With: Bronchodilators Worsens With: Coughing Known History Of: COPD Context: Recent URI Associated Symptoms: Denies other symptoms, Cough Treatments Prior to Arrival: Bronchodilator - Related Data Home Medications Medication Instructions Recorded Confirmed Last Taken Albuterol Sulfate [Proair Hfa] 1 - 2 puff IH .EVERY 4-6 HOURS PRN 07/02/1609/11 1 Day Ago ~09/10/16 Amlodipine Besylate [Norvasc] 10 mg PO DAILY 07/02/16 09/11/16 1 Day Ago ~09/10/16 Budesonide/Formoterol Fumarate 2 puff INH BID 07/02/16 09/11/16 1 Day Ago [Symbicort 160-4.5 Mcg Inhaler] ~09/10/16 Cetirizine HCl 10 mg PO DAILY 07/02/16 09/11/16 1 Day Ago ~09/10/16 Lisinopril 20 mg PO DAILY 07/02/16 09/11/16 1 Day Ago ~09/10/16 Tiotropium [place] [Spiriva] 18 mcg IH DAILY 07/02/16 09/11/16 1 Day Ago ~09/10/16 Albuterol Sulfate 0.083% [Neb] 3 ml NEB .EVERY 4-6 HOURS PRN 08/28/16 09/11/16 1 Day Ago ~09/10/16 Acetaminop W/ Codeine 300/30Mg 1 tab PO Q6H PRN 09/11/16 09/11/16 1 Day Ago [Tylenol #3] ~07/29/17 Previous Rx's Medication Instructions Recorded Prednisone [Prednisone 20Mg] 20 mg PO BID #10 tab 09/11/16 Allergies Allergy/AdvReac Type Severity Reaction Status Date / Time hydrocodone [From [place]] Allergy VOMITING Verified 09/11/16 13:40 [id number]-Uqc-[id number] Reductase AdvReac Intermediate PT UNSURE Verified 09/11/16 13:40 Inhibitor OF REACTION Review of Systems Constitutional: Denies: Chills, Fever, Weakness Eyes: Denies: Eye discharge, Eye pain, Photophobia ENT: Denies: Congestion, Ear pain, Epistaxis, Throat pain Respiratory: Reports: Cough, Dyspnea, Wheezes Cardiovascular: Denies: Chest pain, Palpitations, Syncope Endocrine: Denies: Fatigue Gastrointestinal: Denies: Abdominal pain, Diarrhea, Nausea, Vomiting Genitourinary: Denies: Dysuria, Frequency, Hematuria Musculoskeletal: Denies: Arthralgia, Back pain, Myalgia Skin: Denies: Bruising, Change in color, Rash Neurological: Denies: Headache, Numbness, Weakness Psychiatric: Denies: Anxiety Hematological/Lymphatic: Denies: Blood Clots, Easy bleeding, Easy bruising, Swollen glands Past Medical History - SOCIAL HISTORY Smoking Status: Former smoker Drug Use: None - RESPIRATORY Hx Respiratory Disorders: Yes Hx Asthma: Yes Hx Bronchitis: Yes Hx COPD: Yes - CARDIOVASCULAR Hx Cardio Disorders: No Hx Hypertension: Yes - NEURO Hx Neuro Disorders: No - GI Hx GI Disorders: No - Hx Genitourinary Disorders: No - ENDOCRINE Hx Endocrine Disorders: No - MUSCULOSKELETAL Hx Musculoskeletal Disorders: Yes Comment:: left arm doesnt straighten out, right leg injury - PSYCH Hx Psych Problems: No - HEMATOLOGY/ONCOLOGY Hx Hematology/Oncology Disorders: No Family Medical History Hx Resp Disorders: Father *Resp Comment: COPD Physical Exam - General General Appearance: Alert, Oriented x3, Cooperative, No acute distress Limitations: No limitations - Head Head exam: Normal inspection - Eye Eye exam: Normal appearance. negative: Conjunctival injection, Periorbital swelling - ENT ENT exam: Normal exam Ear exam: Normal external inspection Nasal Exam: Normal inspection Mouth exam: Normal external inspection Teeth exam: Normal inspection - Neck Neck exam: Normal inspection, Full ROM. negative: Tenderness - Respiratory Respiratory exam: Decreased breath sounds, Prolonged expiratory, Wheezes. negative: Normal lung sounds bilaterally, Accessory muscle use, Rales, Respiratory distress - Cardiovascular Cardiovascular Exam: Regular rate, Normal rhythm, Normal heart sounds - GI/Abdominal GI/Abdominal exam: Soft. negative: Tenderness - Rectal Rectal exam: Deferred - exam: Deferred - Extremities Extremities exam: Normal inspection, Full ROM, Normal capillary refill. negative: Pedal edema, Tenderness - Back Back exam: Reports: Normal inspection, Full ROM. Denies: Muscle spasm, Rash noted, Tenderness - Neurological Neurological exam: Alert, Normal gait, Oriented X3. negative: Altered - Psychiatric Psychiatric exam: Normal affect, Normal mood. negative: Agitated, Anxious - Skin Skin exam: Dry, Intact, Normal color, Warm Course - Reevaluation(s) Reevaluation #1: The patient was seen and examined Vitals reviewed. No hypoxia. He has diffuse wheezing. No distress. Full sentences. EMR reviewed from last visit The patient completed steroids on the 09/0209/11/16 13:41 Reevaluation #2: On recheck the patient is 99% on room air His wheezing is essentially gone. He has calm respirations CBC was reviewed. No acute changes He does not have any sputum 09/11/16 14:22 Reevaluation #3: The CMP was reviewed His Sodium is 121 The labs were discussed with the patient I recommended admission for COPD and hyponatremia I [facility] [place] regarding admission 09/11/16 14:34 Medical Decision Making - Lab Data Result diagrams: 09/11/16 14:05 09/11/16 14:05 Disposition Disposition: Admit Clinical Impression: Hyponatremia COPD (chronic obstructive pulmonary disease) Qualifiers: COPD type: COPD with acute exacerbation Qualified Code(s): J44.1 - Chronic obstructive pulmonary disease with (acute) exacerbation Disposition: Still a Patient at [facility] Decision to Admit: Admit from ER Decision to Admit Date: 09/11/16 Decision to Admit Time: 14:46 Condition: (1) Good Additional Instructions: Call your family doctor tomorrow to be rechecked Return if worse, fever, sputum, pain or any new symptoms or concerns Prescriptions: Prednisone [Prednisone 20Mg] 20 mg PO BID #10 tab Forms: Patient Portal Access Time of Disposition: 14:41 Quality - Quality Measures Quality Measures: N/A - Blood Pressure Screening View Details: Yes Blood Pressure Classification: Hypertensive Reading Systolic Measurement: 158 Diastolic Measurement: 79 Screening for High Blood Pressure: < Pre-Hypertensive BP, F/U Documented > [ G8950] Pre-Hypertensive Follow-up Interventions: Referral to alternative/primary care provider.
[2016-09-11 14:12] LABS: BASO % 0.3 % (0-6); EOS % 1.5 % (0-6); GRAN % 69.8 % (47-80); HEMATOCRIT 36.7 % (42.0-52.0); HEMOGLOBIN 13.2 gm/dl (14.0-18.0); LYMPH % 16.9 % (16-45); MEAN CELL VOLUME 92.4 fl (81-97); MEAN CORPUSCULAR HEMOGLOBIN 33.2 pg (27-33); MEAN PLATELET VOLUME 8.7 fl (7.4-10.4); MONO % 11.5 % (0-9); PLATELET COUNT 213 K/uL (130-400); RED BLOOD COUNT 3.97 M/uL (4.40-5.70); RED CELL DISTRIBUTION WIDTH 12.3 % (11.5-14.5); WHITE BLOOD COUNT W/O DIFF 6.1 K/uL (4.2-12.2)
[2016-09-11 14:24] LABS: ALB/GLOB RATIO 1.6 (1.1-1.8); ALBUMIN 5.1 gm/dL (3.5-5.0); ALKALINE PHOSPHATASE 81 U/L (38-126); ALT/SGPT 46 U/L (21-72); AST/SGOT 41 U/L (17-59); BILIRUBIN,TOTAL 1.39 mg/dL (0.2-1.3); BLOOD UREA NITROGEN 11 mg/dL (9-20); CREATININE 0.7 mg/dL (0.66-1.25); EST GLOMERULAR FILTRATION RATE > 60 ml/min; GLUCOSE,RANDOM 137 mg/dL (70-110); TOTAL PROTEIN 8.3 gm/dL (6.3-8.2)
[2016-09-11] MEDS ORDERED: 0.9 % SODIUM CHLORIDE 1000ML 1,000 ML IV PRN (17:00)
[2016-09-11] MEDS ORDERED: ALBUTEROL SULFATE (0.083%) 2.5 MG/3 ML NEB INH PRN (17:00)
[2016-09-11] MEDS ORDERED: FLUTICASONE/SALMETEROL 250/50 DISKUS INH SCH (17:15)
[2016-09-11] MEDS: ACETAMINOPHEN W/ CODEINE 300MG/30MG TABLET PO PRN (18:02)
[2016-09-11] MEDS: ACETAMINOPHEN 500 MG TABLET PO PRN (18:03)
[2016-09-11] MEDS: IPRATROPIUM/ALBUTEROL (0.5MG/3MG) NEB INH SCH ×2 (18:21→21:51)
[2016-09-11] MEDS: FORMOTEROL INH SCH (19:40)
[2016-09-11] MEDS: BUDESONIDE INH SCH (19:40)
[2016-09-12] MEDS: ACETAMINOPHEN 500 MG TABLET PO PRN ×3 (00:18→12:44)
[2016-09-12] MEDS: ACETAMINOPHEN W/ CODEINE 300MG/30MG TABLET PO PRN ×3 (00:18→12:43)
[2016-09-12] MEDS: BUDESONIDE INH SCH ×3 (00:28→15:20)
[2016-09-12] MEDS: FORMOTEROL INH SCH ×3 (00:28→15:20)
[2016-09-12] MEDS: IPRATROPIUM/ALBUTEROL (0.5MG/3MG) NEB INH SCH ×4 (02:04→14:50)
[2016-09-12 06:29] LABS: ALB/GLOB RATIO 1.4 (1.1-1.8); ALBUMIN 4.6 gm/dL (3.5-5.0); ALKALINE PHOSPHATASE 87 U/L (38-126); ALT/SGPT 45 U/L (21-72); ANION GAP 11.4 (7-16); AST/SGOT 27 U/L (17-59); BLOOD UREA NITROGEN 9 mg/dL (9-20); CARBON DIOXIDE 22.6 mmol/L (22-30); CREATININE 0.6 mg/dL (0.66-1.25); EST GLOMERULAR FILTRATION RATE > 60 ml/min; GLUCOSE,RANDOM 156 mg/dL (70-110); TOTAL PROTEIN 7.9 gm/dL (6.3-8.2)
[2016-09-12] MEDS ORDERED: AMLODIPINE BESYLATE 5MG TAB PO SCH (10:00)
[2016-09-12] MEDS ORDERED: LORATADINE 10 MG TABLET PO SCH (10:00)
[2016-09-12] MEDS ORDERED: LISINOPRIL 20 MG TABLET PO SCH (10:00)
[2016-09-12] MEDS ORDERED: METHYLPREDNISOLONE PF 125MG/VIAL IVP SCH (10:00)
[2016-09-12] MEDS ORDERED: ENOXAPARIN 40 MG/0.4 ML SYR SQ SCH (10:00)
--- NOTE | 2016-09-12 12:37 | History & Physical ---
History of Present Illness - Date of Service Date of Service for History & Physical: 09/12/16 - History of Present Illness Admitting Diagnosis: Hyponatremia, COPD History of Present Illness: 71 yo male admitted for hyponatremia and copd. PMHx of former smoker (quit in 2001), COPD, HTN, alcohol abuse (4, 12 ounce beers nightly), proteinuria, and hyponatremia. Patient presented to ED with CC of wheezing and shortness of breath. He had been in the ED about a week prior and was sent home on oral prednisone and had finished the course. Had improvement of symptoms then wheezing and shortness of breath returned the next day. While in the ED, patient was noted to have oxygen sat of 96% on room air. Wheezing was noted but improved following breathing treatment. CBC was unremarkable. CMP showed hyponatremia of 121. Patient was started on IV NS and IV solumedrol and admitted. 09/12/16- Patient very anxious. States he does not like being away from home and his for this long. really would like to go home today. states he has not had any further wheezing since being in the ED. no increased cough or sputum production from baseline. states he has very bad allergies. Says he is sensitive to outdoor allergens like grass and every morning wakes up with nose "plugged up" and has congestion. Says he notices increased wheezing when he is outside more or when they have the windows open. Takes zyrtec daily for allergies. He currently denies any cough, sob, amari, fever, chills, fatigue. He states his regular doctor, Dr. Zelaya, had sent him to see another doctor regarding his sodium levels. He said that doctor told him his blood work looked good and to just follow up with him in 6 months. pcp: Dr. zelaya Travel Screening - Travel/Exposure Within Last 30 Days Have you traveled within the last 30 days?: No - Travel/Exposure Within Last Year Have you traveled outside the [place] in the last year?: No - Additonal Travel Details Have you been exposed to anyone with a communicable illness?: No - Travel Symptoms Symptom Screening: None Review of Systems Constitutional: Denies: Chills, Fever, Weakness Eyes: Denies: Eye discharge, Eye pain, Photophobia ENT: Denies: Congestion, Ear pain, Epistaxis, Throat pain Respiratory: Reports: Cough, Dyspnea, Wheezes Cardiovascular: Denies: Chest pain, Palpitations, Syncope Endocrine: Denies: Fatigue Gastrointestinal: Denies: Abdominal pain, Diarrhea, Nausea, Vomiting Genitourinary: Denies: Dysuria, Frequency, Hematuria Musculoskeletal: Denies: Arthralgia, Back pain, Myalgia Skin: Denies: Bruising, Change in color, Rash Neurological: Denies: Headache, Numbness, Weakness Psychiatric: Denies: Anxiety Hematological/Lymphatic: Denies: Blood Clots, Easy bleeding, Easy bruising, Swollen glands Past Medical History - SOCIAL HISTORY Smoking Status: Former smoker Alcohol Use: Heavy Alcohol Use Comment: 3 beers day Drug Use: None - RESPIRATORY Hx Respiratory Disorders: Yes Hx Asthma: Yes Hx Bronchitis: Yes Hx COPD: Yes Hx Dyspnea: Yes - CARDIOVASCULAR Hx Cardio Disorders: Yes Hx Hypertension: Yes - NEURO Hx Neuro Disorders: No - GI Hx GI Disorders: Yes Hx Reflux: Yes - Hx Genitourinary Disorders: No - ENDOCRINE Hx Endocrine Disorders: No Hx Diabetes: No Hx Thyroid Disease: No - MUSCULOSKELETAL Hx Musculoskeletal Disorders: Yes Comment:: left arm doesnt straighten out,rt knee pain cont - PSYCH Hx Psych Problems: No - HEMATOLOGY/ONCOLOGY Hx Hematology/Oncology Disorders: No Family Medical History Any Significant Family History?: Yes Hx Cancer: Brother/Sister Hx Resp Disorders: Father *Resp Comment: COPD H&P Meds/Allergies - Allergies Allergies: Allergies Allergy/AdvReac Type Severity Reaction Status Date / Time hydrocodone [From [place]] Allergy VOMITING Verified 09/11/16 13:40 [id number] Reductase AdvReac Intermediate PT UNSURE Verified 09/11/16 13:40 Inhibitor OF REACTION - Home Medications Home Medications Medication Instructions Recorded Confirmed Last Taken Albuterol Sulfate [Proair Hfa] 1 - 2 puff IH .EVERY 4-6 HOURS PRN 07/02/1609/11 1 Day Ago ~09/10/16 Amlodipine Besylate [Norvasc] 10 mg PO DAILY 07/02/16 09/11/16 1 Day Ago ~09/10/16 Budesonide/Formoterol Fumarate 2 puff INH BID 07/02/16 09/11/16 1 Day Ago [Symbicort 160-4.5 Mcg Inhaler] ~09/10/16 Cetirizine HCl 10 mg PO DAILY 07/02/16 09/11/16 1 Day Ago ~09/10/16 Lisinopril 20 mg PO DAILY 07/02/16 09/11/16 1 Day Ago ~09/10/16 Tiotropium [place] [Spiriva] 18 mcg IH DAILY 07/02/16 09/11/16 1 Day Ago ~09/10/16 Albuterol Sulfate 0.083% [Neb] 3 ml NEB .EVERY 4-6 HOURS PRN 08/28/16 09/11/16 1 Day Ago ~09/10/16 Acetaminop W/ Codeine 300/30Mg 1 tab PO Q6H PRN 09/11/16 09/11/16 1 Day Ago [Tylenol with Codeine #3] ~09/10/16 Previous Rx's Medication Instructions Recorded Prednisone [Prednisone 20Mg] 20 mg PO BID #10 tab 09/11/16 Fluticasone Propionate [Flonase] 2 spray EACH NARES DAILY #1 bottle 09/12/16 - Active Medications Active Medications: Current Medications Acetaminophen (Tylenol 500mg Tab) 500 mg PO Q6H PRN PRN Reason: Pain - General Last Admin: 09/12/16 06:21 Dose: 500 mg Acetaminophen/Codeine Phosphate (Tylenol #3) 1 udtab PO Q6H PRN PRN Reason: Pain - General Last Admin: 09/12/16 06:18 Dose: 1 udtab Albuterol Sulfate () 2.5 mg INH RESP.Q2H PRN PRN Reason: DIFFICULTY IN BREATHING Albuterol/Ipratropium (Duoneb) 3 ml INH RESP.Q4H.[facility] Last Admin: 09/12/16 10:57 Dose: 3 ml Amlodipine Besylate (Norvasc) 10 mg PO DAILY [facility] Enoxaparin Sodium (Lovenox) 40 mg SQ DAILY [facility] Last Admin: 09/12/16 10:30 Dose: Not Given Sodium Chloride () 1,000 mls @ 75 mls/hr IV .[id number] PRN PRN Reason: LARGE VOLUME IV Last Admin: 09/12/16 05:54 Dose: 75 mls/hr Lisinopril (Zestril) 20 mg PO DAILY [facility] Loratadine (Claritin) 10 mg PO DAILY [facility] Methylprednisolone Sodium Succinate (Solu-Medrol) 60 mg IVP DAILY [facility] Last Admin: 09/12/16 10:32 Dose: 60 mg Patient Own Med: Symbicort 160/4.5mg As Used At Home. 2 each INH BID [facility] Last Admin: 09/12/16 08:42 Dose: 2 each Physical Exam - Vital Signs Vital Signs: Vital Signs - Last 24 Hrs Temp Pulse Pulse Resp BP Pulse Ox 09/12/16 09:00 97.9 F 112 H 18 136/48 98 09/12/16 05:52 89 18 100 09/12/16 02:06 99 H 20 100 09/11/16 21:51 89 20 100 09/11/16 21:00 20 09/11/16 20:08 97.8 F 93 H 22 116/59 100 09/11/16 19:43 89 24 99 09/11/16 19:31 87 20 09/11/16 16:00 98.0 F 87 20 148/77 98 - General General Appearance: Alert, Oriented x3, Cooperative, No acute distress Limitations: No limitations - Head Head exam: Normal inspection - Eye Eye exam: Normal appearance. negative: Conjunctival injection, Periorbital swelling - ENT ENT exam: Normal exam Ear exam: Normal external inspection Nasal Exam: Normal inspection Mouth exam: Normal external inspection Teeth exam: Normal inspection - Neck Neck exam: Normal inspection, Full ROM. negative: Tenderness - Respiratory Respiratory exam: Decreased breath sounds, Prolonged expiratory, Wheezes ( diffuse expiratory wheeze; improved following breathing treatment). negative: Normal lung sounds bilaterally, Accessory muscle use, Rales, Respiratory distress - Cardiovascular Cardiovascular Exam: Regular rate, Normal rhythm, Normal heart sounds - GI/Abdominal GI/Abdominal exam: Soft. negative: Tenderness - Rectal Rectal exam: Deferred - exam: Deferred - Extremities Extremities exam: Normal inspection, Full ROM, Normal capillary refill. negative: Pedal edema, Tenderness - Back Back exam: Reports: Normal inspection, Full ROM. Denies: Muscle spasm, Rash noted, Tenderness - Neurological Neurological exam: Alert, Normal gait, Oriented X3. negative: Altered - Psychiatric Psychiatric exam: Anxious, Normal affect. negative: Agitated - Skin Skin exam: Dry, Intact, Normal color, Warm Results - Labs Result Diagrams: 09/11/16 14:05 09/12/16 13:03 Labs Last 24 Hours: Laboratory Results - last 24 hr 09/12/16 06:10 Sodium 127 L Potassium 3.9 Chloride 93 L Carbon Dioxide 22.6 Anion Gap 11.4 BUN 9 Creatinine 0.6 L Estimated GFR > 60 Random Glucose 156 H Calcium 9.2 Total Bilirubin 0.90 AST 27 ALT 45 Alkaline Phosphatase 87 Total Protein 7.9 Albumin 4.6 Globulin 3.3 Albumin/Globulin Ratio 1.4 VTE H&P Assessment - Risk for VTE Risk for VTE: Yes Risk Level: Moderate Risk Assessment Date: 09/12/16 Risk Assessment Time: 15:41 VTE Orders Placed or Will Be Placed: Yes Plan - Detailed Diagnosis and Plan (1) Hyponatremia Current Visit: Yes Status: Acute Base Code: E87.1 - HYPO-OSMOLALITY AND HYPONATREMIA Comment: 09/12/16: improved to 127 up from 121 this morning. chronic per patient. denies dizziness, lightheadedness, weakness, or confusion. A&Ox3. patient has apparently seen specialist regarding but cannot remember who he saw, believes it was nephrology. -will recehck bmp this afternoon to ensure trend continues upwards. -continue IVF with NS -will need follow up with pcp and will write for repeat lab orders to have done prior to follow up apt. (2) COPD (chronic obstructive pulmonary disease) Current Visit: Yes Status: Acute Qualifiers: COPD type: COPD with acute exacerbation Qualified Code(s): J44.1 - Chronic obstructive pulmonary disease with (acute) exacerbation Base Code: J44.9 - CHRONIC OBSTRUCTIVE PULMONARY DISEASE, UNSPECIFIED Comment : 09/12/16: improved. oxygen saturation stable at 98% on room air. some expiratory wheeze but no difficulty breathing. -will continue solumedrol 60mg IV today and then transition to oral prednisone -continue home medications: albuterol, spiriva, symbicort (3) DVT prophylaxis Current Visit: Yes Status: Acute Base Code: [id number] - Comment: 09/12/16- patient is moderate risk with age -will encourage ambulation (4) Full code status Current Visit: No Status: Acute Base Code: Z78.9 - OTHER SPECIFIED HEALTH STATUS Comment: 09/12/16- pt is full code
[2016-09-12 13:29] LABS: ALB/GLOB RATIO 1.5 (1.1-1.8); ALBUMIN 4.6 gm/dL (3.5-5.0); ALKALINE PHOSPHATASE 84 U/L (38-126); ALT/SGPT 47 U/L (21-72); ANION GAP 12.5 (7-16); AST/SGOT 27 U/L (17-59); BILIRUBIN,TOTAL 0.83 mg/dL (0.2-1.3); BLOOD UREA NITROGEN 11 mg/dL (9-20); CARBON DIOXIDE 21.5 mmol/L (22-30); CREATININE 0.6 mg/dL (0.66-1.25); EST GLOMERULAR FILTRATION RATE > 60 ml/min; GLUCOSE,RANDOM 175 mg/dL (70-110); TOTAL PROTEIN 7.6 gm/dL (6.3-8.2)
--- NOTE | 2016-09-12 15:31 | Discharge Summary ---
Providers Discharge Summary Date: 09/12/16 Date of admission: 09/11/16 15:38 Expected Date of Discharge: 09/12/16 Attending physician: KRYSTA HARRY Primary care physician: YONNY ZELAYA M.D. Physical Exam - Vital Signs Vital Signs: Vital Signs - Last 24 Hrs Temp Pulse Pulse Resp BP Pulse Ox 09/12/16 09:00 97.9 F 124 H 22 136/48 98 09/12/16 05:52 89 18 100 09/12/16 02:06 99 H 20 100 09/11/16 21:51 89 20 100 09/11/16 21:00 20 09/11/16 20:08 97.8 F 93 H 22 116/59 100 09/11/16 19:43 89 24 99 09/11/16 19:31 87 20 09/11/16 16:00 98.0 F 87 20 148/77 98 - General General Appearance: Alert, Oriented x3, Cooperative, No acute distress Limitations: No limitations - Head Head exam: Normal inspection - Eye Eye exam: Normal appearance. negative: Conjunctival injection, Periorbital swelling - ENT ENT exam: Normal exam Ear exam: Normal external inspection Nasal Exam: Normal inspection Mouth exam: Normal external inspection Teeth exam: Normal inspection - Neck Neck exam: Normal inspection, Full ROM. negative: Tenderness - Respiratory Respiratory exam: Decreased breath sounds, Prolonged expiratory. negative: Normal lung sounds bilaterally, Accessory muscle use, Rales, Respiratory distress - Cardiovascular Cardiovascular Exam: Regular rate, Normal rhythm, Normal heart sounds - GI/Abdominal GI/Abdominal exam: Soft. negative: Tenderness - Rectal Rectal exam: Deferred - exam: Deferred - Extremities Extremities exam: Normal inspection, Full ROM, Normal capillary refill. negative: Pedal edema, Tenderness - Back Back exam: Reports: Normal inspection, Full ROM. Denies: Muscle spasm, Rash noted, Tenderness - Neurological Neurological exam: Alert, Normal gait, Oriented X3. negative: Altered - Psychiatric Psychiatric exam: Anxious, Normal affect. negative: Agitated - Skin Skin exam: Dry, Intact, Normal color, Warm Hospitalization - Hospitalization Admission Diagnosis: Hyponatremia, COPD - Problem List/Discharge Diagnosis (1) Hyponatremia Current Visit: Yes Status: Acute Base Code: E87.1 - HYPO-OSMOLALITY AND HYPONATREMIA Comment: 09/12/16: improved to 127 up from 121 this morning. chronic per patient. denies dizziness, lightheadedness, weakness, or confusion. A&Ox3. patient has apparently seen specialist regarding but cannot remember who he saw, believes it was nephrology. -sodium stable at 126. States this was where it was last month when it was checked by test evaluator. -will plan to discharge home. Has follow up [facility] Dr. zelaya next week. outpatient lab order given to have cmp rechecked prior to that appointment. -patient agrees with this plan (2) COPD (chronic obstructive pulmonary disease) Current Visit: Yes Status: Acute Discharge Diagnosis: COPD type: COPD with acute exacerbation Qualified Code(s): J44.1 - Chronic obstructive pulmonary disease with (acute) exacerbation Base Code: J44.9 - CHRONIC OBSTRUCTIVE PULMONARY DISEASE, UNSPECIFIED Comment : 09/12/16: improved. oxygen saturation stable at 98% on room air. some expiratory wheeze but no difficulty breathing. -will continue solumedrol 60mg IV today and then transition to oral prednisone 20mg po bid. Exacerbating factor seems to be allergens vs infectious -will add flonase 2 spray in each nostril daily to his zyrtec. has follow up [facility] pcp scheduled -continue home medications: albuterol, spiriva, symbicort (3) DVT prophylaxis Current Visit: Yes Status: Acute Base Code: [id number] - Comment: 09/12/16- patient is moderate risk with age -will encourage ambulation (4) Full code status Current Visit: No Status: Acute Base Code: Z78.9 - OTHER SPECIFIED HEALTH STATUS Comment: 09/12/16- pt is full code - Hospitalization Course Disposition: Home, Self-Care Abnormal Labs: Abnormal Lab Results 09/12/16 09/12/16 Range/Units 06:10 13:03 Sodium 127 L 126 L (136-145) mmol/L Chloride 93 L 92 L (98-107) mmol/L Carbon Dioxide 21.5 L (22-30) mmol/L Creatinine 0.6 L 0.6 L (0.66-1.25) mg/dL Random Glucose 156 H 175 H (70-110) mg/dL Condition at Discharge: (2) Stable Discharge Medications - Discharge Medications Prescriptions: Fluticasone Propionate [Flonase] 2 spray EACH NARES DAILY #1 bottle Prednisone [Prednisone 20Mg] 20 mg PO BID #10 tab Home Medications: Ambulatory Orders Albuterol Sulfate [Proair Hfa] 1 - 2 puff IH .EVERY 4-6 HOURS PRN 07/02/16 [ Last Taken 1 Day Ago ~09/10/16] Amlodipine Besylate [Norvasc] 10 mg PO DAILY 07/02/16 [Last Taken 1 Day Ago ~] Budesonide/Formoterol Fumarate [Symbicort 160-4.5 Mcg Inhaler] 2 puff INH BID [Last Taken 1 Day Ago ~09/10/16] Cetirizine HCl 10 mg PO DAILY 07/02/16 [Last Taken 1 Day Ago ~09/10/16] Lisinopril 20 mg PO DAILY 07/02/16 [Last Taken 1 Day Ago ~09/10/16] Tiotropium Pax [Spiriva] 18 mcg IH DAILY 07/02/16 [Last Taken 1 Day Ago ~] Albuterol Sulfate 0.083% [Neb] 3 ml NEB .EVERY 4-6 HOURS PRN 08/28/16 [Last Taken 1 Day Ago ~09/10/16] Acetaminop W/ Codeine 300/30Mg [Tylenol with Codeine #3] 1 tab PO Q6H PRN [Last Taken 1 Day Ago ~09/10/16] Prednisone [Prednisone 20Mg] 20 mg PO BID #10 tab 09/11/16 [Last Taken Unknown] Fluticasone Propionate [Flonase] 2 spray EACH NARES DAILY #1 bottle 09/12/16 [ Last Taken Unknown] Discharge Plan - Discharge Instructions Activity at Discharge: Resume Usual Activities As Tolerated Diet at Discharge: Regular Diet Additional Instructions: Follow up appt with Dr Zelaya on MonSep 21 @ 10:15am. Appt will be at [facility]. Continue prednisone 20mg by mouth daily for 5 more days starting tomorrow Start flonase 2 sprays in each nostril daily Please have labs repeated at least 2 days before your follow up with Dr. Zelaya. Please call with any questions or concerns Return to ED for any new or worsening concerns
== END 2016-09-12 17:15 | disposition home or self-care (01) ==
LOC: ER 13:30 → MEDSURG 15:38 → INTOOBSV 15:38
PROVIDERS: ADMIT Family Medicine; ATTEND Family Medicine
DX: E87.1 Hypo-osmolality and hyponatremia (principal); J44.1 Chronic obstructive pulmonary disease with (acute) exacerbation; Z78.9 Other specified health status
CPT/HCPCS: 99285 ×2; 96374; 85025; 80053 ×2; 94640 ×5; G0378 ×2; 99220; J2930